=== PATIENT | male | born 1950 | race Caucasian/White ===

== ENCOUNTER 2016-12-03 06:14 | Day surgery (SDC) | payer MEDICARE, OTHER ==
[~2016-12-03] VITALS: Ht 172.7 cm; Wt 88.5 kg
[~2016-12-03 06:14] MED LIST: AMLO10TA2 PO; ATOR80TA75 PO; LISI1TAB3 PO; METF500T4 PO
[2016-12-03 07:12] VITALS: BP 154/90
[2016-12-03] MEDS ORDERED: LACTATED RINGERS 1,000 ML IV SCH (07:16)
[2016-12-03] MEDS ORDERED: CIPROFLOXACIN/PMX 400MG/200ML 200 ML ONE (08:56)
[2016-12-03] MEDS ORDERED: CHLORHEXIDINE MOUTHWASH 15 ML UDC ONE (08:57)
[2016-12-03] MEDS ORDERED: PROPOFOL 10 MG/ML, 20ML ONE (09:10)
[2016-12-03] MEDS ORDERED: PROPOFOL 10 MG/ML, 50ML ONE (09:10)
[2016-12-03] MEDS ORDERED: METOCLOPRAMIDE 5 MG/ML, 2ML IV PRN (09:30)
[2016-12-03] MEDS ORDERED: LABETALOL 5MG/ML, 20ML IV PRN (09:30)
[2016-12-03] MEDS ORDERED: PROMETHAZINE 25 MG/ML, 1ML IV PRN (09:30)
[2016-12-03] MEDS ORDERED: ONDANSETRON 2MG/ML, 2ML IVPush PRN (09:30)
[2016-12-03] MEDS ORDERED: hydrALAzine 20 MG/ML, 1ML IV PRN (09:30)
[2016-12-03 15:30] LABS: ASPARTATE AMINO TRANSFERASE 16 U/L (15-37); BLOOD UREA NITROGEN 14 mg/dL (7-18)
== END 2016-12-03 11:05 | disposition home or self-care (01) ==
LOC: OUT 06:14
PROVIDERS: ATTEND Internal Medicine Gastroenterology
DX: K86.89 Other specified diseases of pancreas (principal); K57.10 Diverticulosis of small intestine without perforation or abscess without bleeding; K29.00 Acute gastritis without bleeding; Z88.0 Allergy status to penicillin; I10 Essential (primary) hypertension; E11.9 Type 2 diabetes mellitus without complications; Z87.442 Personal history of urinary calculi; F41.9 Anxiety disorder, unspecified; Z86.010 Personal history of colon polyps; Z91.048 Other nonmedicinal substance allergy status
CPT/HCPCS: 36415; 43238; 43239; 80053; 82962; 85025; 88104; 88172; 88173; 88177; 88305; 88307; 93005; J0744; J2704; J7120